=== PATIENT | male | born 2000 | race Caucasian/White ===

== ENCOUNTER 2022-03-11 21:08 | Emergency (ER) | payer SELFPAY ==
[2022-03-11 21:25] VITALS: BP 133/63
[2022-03-11] MEDS ORDERED: ACETAMINOPHEN 500 MG TAB PO ONE (21:28)
== END 2022-03-12 13:19 | disposition left against medical advice (07) ==
LOC: ED 21:08
DX: M25.559 Pain in unspecified hip (principal); Z53.21 Procedure and treatment not carried out due to patient leaving prior to being seen by health care provider